=== PATIENT | male | born 1940 | race Caucasian/White ===

== ENCOUNTER 2020-08-25 17:35 | Observation (INO) | payer MEDICARE ==
[2020-08-25] MEDS ORDERED: Ibuprofen 400 MG Tab PO ONE (18:04)
--- NOTE | 2020-08-25 18:20 | EDM.PDOC ---
ED HPI GENERAL MEDICAL PROBLEM - General Chief Complaint: General Stated Complaint: WEAKNESS Time Seen by Provider: 08/25/20 18:05 Source of Information: Reports: Patient, Family, RN. Denies: Old Records History Limitations: Reports: Other (no old records) - History of Present Illness INITIAL COMMENTS - FREE TEXT/NARRATIVE: 80 yo male here via EMS accompanied by family members for weakness that began yesterday and has worsened today. He was unaware of fever. Denies any localizing sx's. Has neurogenic bladder and self-catheterizes. Denies any known exposures. Does not recall ever feeling like this before. Onset: Gradual Onset Date: 08/24/20 Duration: Day(s):, Getting Worse Location: Reports: Generalized Quality: Reports: Other (pain not reported) Severity: Severe Improves with: Reports: None Worsens with: Reports: Other (time) Context: Reports: Other (See HPI) Associated Symptoms: Reports: Fever/Chills (here, but was unaware of this at home. ), Weakness (generalized). 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) - Related Data Allergies Allergy/AdvReac Type Severity Reaction Status Date / Time acetaminophen [From Tylenol] Allergy Swelling Verified 08/25/20 17:46 Home Meds: Home Meds Cholecalciferol (Vitamin D3) [Vitamin D3] 1,000 unit PO DAILY 08/25/20 [History] Multivitamin [Multivitamins] 1 each PO DAILY 08/25/20 [History] Sulfamethoxazole/Trimethoprim [Bactrim 400-80 MG] 1 tab DAILY 08/25/20 [History] Past Medical History Genitourinary History: Reports: Neurogenic Bladder, Other (See Below) Other Genitourinary History: self cath's 3-4 times a day prn Musculoskeletal History: Reports: Arthritis Neurological History: Reports: None - Past Surgical History Head Surgeries/Procedures: Reports: None Neurological Surgical History: Reports: C-Spine Social & Family History - Family History Family Medical History: Noncontributory - Tobacco Use Tobacco Use Status *Q: Former Tobacco User Used Tobacco, but Quit: Yes Month/Year Tobacco Last Used: 1967 - Caffeine Use Caffeine Use: Reports: Coffee, Soda - Alcohol Use Days Per Week of Alcohol Use: 2 Number of Drinks Per Day: 4 Total Drinks Per Week: 8 - Recreational Drug Use Recreational Drug Use: No ED ROS GENERAL - Review of Systems Review Of Systems: See Below Constitutional: Reports: Malaise, Weakness, Fatigue. Denies: Fever (unaware), Chills (unaware) HEENT: Reports: No Symptoms Respiratory: Reports: No Symptoms Cardiovascular: Reports: No Symptoms Endocrine: Reports: No Symptoms GI/Abdominal: Reports: No Symptoms : Reports: No Symptoms Musculoskeletal: Reports: No Symptoms Skin: Reports: No Symptoms Neurological: Reports: No Symptoms Psychiatric: Reports: No Symptoms ED EXAM, GENERAL - Physical Exam Exam: See Below Exam Limited By: No Limitations General Appearance: Alert, WD/WN, No Apparent Distress Eye Exam: Bilateral Eye: Normal Inspection Ears: Normal External Exam, Normal Canal, Hearing Grossly Normal, Normal TMs Ear Exam: Bilateral Ear: Auricle Normal, Canal Normal Nose: Normal Inspection, No Blood Throat/Mouth: Normal Inspection, Normal Lips, Normal Oropharynx, Normal Voice, No Airway Compromise Head: Atraumatic, Normocephalic Neck: Normal Inspection, Non-Tender Respiratory/Chest: No Respiratory Distress, Lungs Clear, Normal Breath Sounds, No Accessory Muscle Use Cardiovascular: Regular Rate, Rhythm, No Edema GI/Abdominal: Normal Bowel Sounds, Soft, Non-Tender, No Distention Back Exam: Normal Inspection. No: CVA Tenderness (R), CVA Tenderness (L) Extremities: Normal Inspection, Normal Range of Motion, Non-Tender, No Pedal Edema Neurological: Alert, Oriented, CN II-XII Intact, Normal Cognition, No Motor/Sensory Deficits Psychiatric: Normal Affect, Normal Mood Skin Exam: Warm, Dry, Intact, Normal Color, No Rash Course - Vital Signs Last Recorded V/S: Last Vital Signs Temp 38.0 C 08/25/20 17:35 Pulse 74 08/25/20 17:35 Resp 28 H 08/25/20 17:35 BP 123/90 08/25/20 17:35 Pulse Ox 96 08/25/20 17:35 - Orders/Labs/Meds Orders: Active Orders 24 hr Category Date Time Status Chest 2V [CR] Stat Exams 08/25/20 20:20 Taken CULTURE URINE [RM] Stat Lab 08/25/20 18:35 Received Sodium Chloride 0.9% [Normal Saline] 1,000 ml Med 08/25/20 20:15 Active IV ASDIRECTED Medication Orders Sodium Chloride (Normal Saline) 1,000 mls @ 150 mls/hr IV ASDIRECTED [facility] Labs: Laboratory Tests 08/25/20 08/25/20 08/25/20 Range/Units 18:00 18:00 18:00 WBC 10.2 (4.5-12.0) X10-3/uL RBC 4.40 (4.30-5.75) x10(6)uL Hgb 13.9 (13.5-17.8) g/dL Hct 41.4 (30.0-51.3) % MCV 94.1 (80-96) fL MCH 31.5 (27.7-33.6) pg MCHC 33.5 (32.2-35.4) g/dL RDW 12.9 (11.5-15.5) % Plt Count 162 (125-369) X10(3)uL D-Dimer, Quantitative 0.67 H (0.0-0.59) mg/LFEU Sodium 130 L (135-145) mmol/L Potassium 4.3 (3.5-5.3) mmol/L Chloride 94 L (100-110) mmol/L Carbon Dioxide 25 (21-32) mmol/L BUN 27 H (7-18) mg/dL Creatinine 1.4 H (0.70-1.30) mg/dL Est Cr Clr Drug Dosing 43.33 mL/min Estimated GFR (MDRD) 49 L (>60) BUN/Creatinine Ratio 19.3 (9-20) Glucose 136 H (80-116) mg/dL Calcium 8.8 (8.6-10.2) mg/dL Lactate Dehydrogenase 135 (85-227) U/L C-Reactive Protein (0.5-0.9) mg/dL Urine Color (YELLOW) Urine Appearance (CLEAR) Urine pH (5.0-6.5) Ur Specific [place] (1.010-1.025) Urine Protein (NEGATIVE) mg/dL Urine Glucose (UA) (NORMAL) mg/dL Urine Ketones (NEGATIVE) mg/dL Urine Occult Blood (NEGATIVE) Urine Nitrite (NEGATIVE) Urine Bilirubin (NEGATIVE) Urine Urobilinogen (NEGATIVE) mg/dL Ur Leukocyte Esterase (NEGATIVE) Urine RBC (0-5) Urine WBC (0-5) Ur Squamous Epith Cells (NS,R,O) Amorphous Sediment Urine Bacteria (NS) SARS-CoV-2 RNA (JUAN) (NEGATIVE) 08/25/20 08/25/20 08/25/20 Range/Units 18:00 18:00 18:42 WBC (4.5-12.0) X10-3/uL RBC (4.30-5.75) x10(6)uL Hgb (13.5-17.8) g/dL Hct (30.0-51.3) % MCV (80-96) fL MCH (27.7-33.6) pg MCHC (32.2-35.4) g/dL RDW (11.5-15.5) % Plt Count (125-369) X10(3)uL D-Dimer, Quantitative (0.0-0.59) mg/LFEU Sodium (135-145) mmol/L Potassium (3.5-5.3) mmol/L Chloride (100-110) mmol/L Carbon Dioxide (21-32) mmol/L BUN (7-18) mg/dL Creatinine (0.70-1.30) mg/dL Est Cr Clr Drug Dosing mL/min Estimated GFR (MDRD) (>60) BUN/Creatinine Ratio (9-20) Glucose (80-116) mg/dL Calcium (8.6-10.2) mg/dL Lactate Dehydrogenase (85-227) U/L C-Reactive Protein 24.6 H* (0.5-0.9) mg/dL Urine Color Yellow (YELLOW) Urine Appearance Slightly cloudy (CLEAR) Urine pH 5.0 (5.0-6.5) Ur Specific [place] 1.025 (1.010-1.025) Urine Protein 100 H (NEGATIVE) mg/dL Urine Glucose (UA) Normal (NORMAL) mg/dL Urine Ketones Negative (NEGATIVE) mg/dL Urine Occult Blood Large H (NEGATIVE) Urine Nitrite Positive H (NEGATIVE) Urine Bilirubin Negative (NEGATIVE) Urine Urobilinogen Normal (NEGATIVE) mg/dL Ur Leukocyte Esterase Negative (NEGATIVE) Urine RBC 5-10 H (0-5) Urine WBC 0-5 (0-5) Ur Squamous Epith Cells Occasional (NS,R,O) Amorphous Sediment Few Urine Bacteria Moderate H (NS) SARS-CoV-2 RNA (JUAN) Negative (NEGATIVE) Meds: Medications Generic Name Dose Route Start Last Admin Trade Name El PRN Reason Stop Dose Admin Sodium Chloride 1,000 mls @ 150 mls/hr 08/25/20 20:15 Normal Saline IV ASDIRECTED LUCA Discontinued Medications Generic Name Dose Route Start Last Admin Trade Name El PRN Reason Stop Dose Admin Ceftriaxone Sodium 2 gm 08/25/20 20:45 Rocephin IVPUSH 08/25/20 20:46 ONETIME ONE Sodium Chloride 1,000 mls @ 1,000 mls/hr 08/25/20 18:52 08/25/20 19:13 Normal Saline IV 08/25/20 19:51 1,000 mls/hr .BOLUS ONE Administration Ceftriaxone Sodium 2 gm/ 50 mls @ 200 mls/hr 08/25/20 20:34 Sodium Chloride IV 08/25/20 20:48 ONETIME ONE Ibuprofen 400 mg 08/25/20 18:04 08/25/20 18:21 Motrin PO 08/25/20 18:05 400 mg ONETIME ONE Administration - Radiology Interpretation Free Text/Narrative:: CXR-neg Departure - Departure Time of Disposition: 21:00 Disposition: Refer to Observation Condition: Fair Clinical Impression: Weakness, Mild dehydration, Hyponatremia UTI (urinary tract infection) Qualifiers: Urinary tract infection type: site unspecified Hematuria presence: without hematuria Qualified Code(s): N39.0 - Urinary tract infection, site not specified - Discharge Information *PRESCRIPTION DRUG MONITORING PROGRAM REVIEWED*: Not Applicable *COPY OF PRESCRIPTION DRUG MONITORING REPORT IN PATIENT [place]ETTE: Not Applicable Referrals: PCP,None [Ordering Only Provider] - Forms: ED Department Discharge Sepsis Event Note (ED) - Evaluation Sepsis Screening Result: Possible Sepsis Risk - Focused Exam Vital Signs: Vital Signs Temp Pulse Resp BP Pulse Ox 08/25/20 17:35 38.0 C 74 28 H 123/90 96 - My Orders Last 24 Hours: My Active Orders 08/25/20 18:35 CULTURE URINE [RM] Stat 08/25/20 20:15 Sodium Chloride 0.9% [Normal Saline] 1,000 ml IV ASDIRECTED 08/25/20 20:20 Chest 2V [CR] Stat - Assessment/Plan Last 24 Hours: My Active Orders 08/25/20 18:35 CULTURE URINE [RM] Stat 11/01/20 20:15 Sodium Chloride 0.9% [Normal Saline] 1,000 ml IV ASDIRECTED 08/25/20 20:20 Chest 2V [CR] Stat
[2020-08-25] MEDS ORDERED: Sodium Chloride 0.9% 1,000 ML IV ONE (18:52)
[2020-08-25] MEDS ORDERED: cefTRIAXone 2 GM in Sodium Chloride 0.9% 50 ML IV ONE (20:34)
[2020-08-25] MEDS ORDERED: cefTRIAXone 2 GM Vial IVPUSH ONE (20:45)
[2020-08-25] MEDS: Sodium Chloride 0.9% 1,000 ML IV SCH (20:54)
[2020-08-25] MEDS ORDERED: Polyethylene Glycol 3350 Powder 17 GM Packet PO PRN (21:06)
[2020-08-25] MEDS ORDERED: Ibuprofen 400 MG Tab PO PRN (21:06)
[2020-08-26] MEDS: Sodium Chloride 0.9% 1,000 ML IV SCH ×2 (03:49→16:30)
[2020-08-26] MEDS ORDERED: cefTRIAXone 1 GM in Sodium Chloride 0.9% 50 ML IV SCH (09:00)
--- NOTE | 2020-08-26 09:00 | PCM.HP.2 ---
H&P History of Present Illness - General Date of Service: 08/26/20 Admit Problem/Dx: Admission Diagnosis/Problem Admission Diagnosis/Problem UTI, Urinary tract infectious disease Source of Information: Patient History Limitations: Reports: No Limitations - History of Present Illness Initial Comments - Free Text/Narative: This is an 80-year-old male patient that weakness started 2 days ago and then the day of admission yesterday stated he is watching the games and he was so weak he couldn't get out of his chair. He called the ambulance and was brought in. He has a history of neurogenic bladder and self cath. He denies any burning with urination or discolored urine which is usually signs his UTIs coming on. He does take Bactrim prophylaxis once a day. He says the weakness was generalized and not lateralized. He denies dysphagia, aphasia, lateralizing weakness. Patien t denies any chest pain. He has a little cough that he always has time a year but that hasn't changed. He had no fevers or chills at home. He says last night in the hospital they told me a little fever. - Related Data Allergies/Adverse Reactions: Allergies Allergy/AdvReac Type Severity Reaction Status Date / Time acetaminophen [From Tylenol] Allergy Swelling Verified 08/25/20 17:46 Home Medications: Home Meds Cholecalciferol (Vitamin D3) [Vitamin D3] 1,000 unit PO DAILY 08/25/20 [History] Multivitamin [Multivitamins] 1 each PO DAILY 08/25/20 [History] Sulfamethoxazole/Trimethoprim [Bactrim 400-80 MG] 1 tab DAILY 08/25/20 [History] Past Medical History Genitourinary History: Reports: Neurogenic Bladder, Other (See Below) Other Genitourinary History: self cath's 3-4 times a day prn Musculoskeletal History: Reports: Arthritis Neurological History: Reports: None - Past Surgical History Head Surgeries/Procedures: Reports: None GI Surgical History: Reports: Other (See Below) Other GI Surgeries/Procedures: Ulcer repair 2007 Neurological Surgical History: Reports: C-Spine Social & Family History - Family History Family Medical History: Noncontributory - Tobacco Use Tobacco Use Status *Q: Former Tobacco User Years of Tobacco use: 35 Used Tobacco, but Quit: Yes Month/Year Tobacco Last Used: 1969 Second Hand Smoke Exposure: No - Caffeine Use Caffeine Use: Reports: Coffee Other Caffeine Use: 2 coffee - Alcohol Use Days Per Week of Alcohol Use: 5 Number of Drinks Per Day: 1 Total Drinks Per Week: 5 - Recreational Drug Use Recreational Drug Use: No H&P Review of Systems - Review of Systems: Review Of Systems: See Below General: Reports: Weakness HEENT: Reports: No Symptoms Pulmonary: Reports: Cough, Sputum. Denies: Shortness of Breath, Wheezing Cardiovascular: Reports: No Symptoms Gastrointestinal: Reports: No Symptoms Genitourinary: Reports: No Symptoms Musculoskeletal: Reports: No Symptoms Skin: Reports: No Symptoms Psychiatric: Reports: No Symptoms Neurological: Reports: Difficulty Walking, Weakness, Gait Disturbance. Denies: Headache, Numbness, Seizure, Syncope, Tingling, Trouble Speaking Hematologic/Lymphatic: Reports: No Symptoms Immunologic: Reports: No Symptoms Exam - Exam Exam: See Below - Vital Signs Vital Signs: Last Vital Signs Temp 99.1 F 08/26/20 06:40 Pulse 75 08/26/20 04:00 Resp 16 08/26/20 04:00 BP 151/66 H 08/26/20 04:00 Pulse Ox 95 08/26/20 04:00 Weight: 194 lb - Exam General: Alert, Oriented, Cooperative HEENT: Hearing Intact, Mucosa Moist & [place], Posterior Pharynx Clear, TMs Clear Neck: Supple, Trachea Midline Lungs: Clear to Auscultation, Normal Respiratory Effort. No: Crackles, Rales, Rhonchi Cardiovascular: Regular Rate, Regular Rhythm GI/Abdominal Exam: Normal Bowel Sounds, Soft, Non-Tender, No Organomegaly, No Distention, No Mass Back Exam: Normal Inspection, Full Range of Motion Extremities: Normal Inspection, Normal Range of Motion, Non-Tender, No Pedal Edema Skin: Warm, Intact Neurological: Normal Speech, Normal Tone Neuro Extensive - Mental Status: Alert, Oriented x3, Normal Mood/Affect, Normal Cognition, Memory Intact Neuro Extensive - Motor, Sensory, Reflexes: No: Normal Gait (Not tested had good lateralizing strength upper and lower extremities.) Psychiatric: Alert, Normal Affect, Normal Mood - Patient Data Lab Results Last 24 hrs: Laboratory Results - last 24 hr 08/25/20 08/25/20 08/25/20 Range/Units 18:00 18:00 18:00 WBC 10.2 (4.5-12.0) X10-3/uL RBC 4.40 (4.30-5.75) x10(6)uL Hgb 13.9 (13.5-17.8) g/dL Hct 41.4 (30.0-51.3) % MCV 94.1 (80-96) fL MCH 31.5 (27.7-33.6) pg MCHC 33.5 (32.2-35.4) g/dL RDW 12.9 (11.5-15.5) % Plt Count 162 (125-369) X10(3)uL MPV (7.4-10.4) fL Neut % (Auto) (46-82) % Lymph % (Auto) (13-37) % [place] % (Auto) (4-12) % Eos % (Auto) (1.0-5.0) % Baso % (Auto) (0-2) % Neut # (Auto) (1.6-8.3) # Lymph # (Auto) (0.6-5.0) # Clare # (Auto) (0.0-1.3) # Eos # (Auto) (0.0-0.8) # Baso # (Auto) (0.0-0.2) # D-Dimer, Quantitative 0.67 H (0.0-0.59) mg/LFEU Sodium 130 L (135-145) mmol/L Potassium 4.3 (3.5-5.3) mmol/L Chloride 94 L (100-110) mmol/L Carbon Dioxide 25 (21-32) mmol/L BUN 27 H (7-18) mg/dL Creatinine 1.4 H (0.70-1.30) mg/dL Est Cr Clr Drug Dosing 43.33 mL/min Estimated GFR (MDRD) 49 L (>60) BUN/Creatinine Ratio 19.3 (9-20) Glucose 136 H (80-116) mg/dL Calcium 8.8 (8.6-10.2) mg/dL Lactate Dehydrogenase 135 (85-227) U/L Troponin I (4.0-60.3) pg/mL C-Reactive Protein (0.5-0.9) mg/dL Urine Color (YELLOW) Urine Appearance (CLEAR) Urine pH (5.0-6.5) Ur Specific [place] (1.010-1.025) Urine Protein (NEGATIVE) mg/dL Urine Glucose (UA) (NORMAL) mg/dL Urine Ketones (NEGATIVE) mg/dL Urine Occult Blood (NEGATIVE) Urine Nitrite (NEGATIVE) Urine Bilirubin (NEGATIVE) Urine Urobilinogen (NEGATIVE) mg/dL Ur Leukocyte Esterase (NEGATIVE) Urine RBC (0-5) Urine WBC (0-5) Ur Squamous Epith Cells (NS,R,O) Amorphous Sediment Urine Bacteria (NS) SARS-CoV-2 RNA (JUAN) (NEGATIVE) 08/25/20 08/25/20 08/25/20 Range/Units 18:00 18:00 18:00 WBC (4.5-12.0) X10-3/uL RBC (4.30-5.75) x10(6)uL Hgb (13.5-17.8) g/dL Hct (30.0-51.3) % MCV (80-96) fL MCH (27.7-33.6) pg MCHC (32.2-35.4) g/dL RDW (11.5-15.5) % Plt Count (125-369) X10(3)uL MPV (7.4-10.4) fL Neut % (Auto) (46-82) % Lymph % (Auto) (13-37) % [place] % (Auto) (4-12) % Eos % (Auto) (1.0-5.0) % Baso % (Auto) (0-2) % Neut # (Auto) (1.6-8.3) # Lymph # (Auto) (0.6-5.0) # Clare # (Auto) (0.0-1.3) # Eos # (Auto) (0.0-0.8) # Baso # (Auto) (0.0-0.2) # D-Dimer, Quantitative (0.0-0.59) mg/LFEU Sodium (135-145) mmol/L Potassium (3.5-5.3) mmol/L Chloride (100-110) mmol/L Carbon Dioxide (21-32) mmol/L BUN (7-18) mg/dL Creatinine (0.70-1.30) mg/dL Est Cr Clr Drug Dosing mL/min Estimated GFR (MDRD) (>60) BUN/Creatinine Ratio (9-20) Glucose (80-116) mg/dL Calcium (8.6-10.2) mg/dL Lactate Dehydrogenase (85-227) U/L Troponin I 14.4 (4.0-60.3) pg/mL C-Reactive Protein 24.6 H* (0.5-0.9) mg/dL Urine Color Yellow (YELLOW) Urine Appearance Slightly cloudy (CLEAR) Urine pH 5.0 (5.0-6.5) Ur Specific [place] 1.025 (1.010-1.025) Urine Protein 100 H (NEGATIVE) mg/dL Urine Glucose (UA) Normal (NORMAL) mg/dL Urine Ketones Negative (NEGATIVE) mg/dL Urine Occult Blood Large H (NEGATIVE) Urine Nitrite Positive H (NEGATIVE) Urine Bilirubin Negative (NEGATIVE) Urine Urobilinogen Normal (NEGATIVE) mg/dL Ur Leukocyte Esterase Negative (NEGATIVE) Urine RBC 5-10 H (0-5) Urine WBC 0-5 (0-5) Ur Squamous Epith Cells Occasional (NS,R,O) Amorphous Sediment Few Urine Bacteria Moderate H (NS) SARS-CoV-2 RNA (JUAN) (NEGATIVE) 08/25/20 08/26/20 08/26/20 Range/Units 18:42 06:25 06:25 WBC 10.0 (4.5-12.0) X10-3/uL RBC 3.74 L (4.30-5.75) x10(6)uL Hgb 12.1 L (13.5-17.8) g/dL Hct 35.0 (30.0-51.3) % MCV 93.7 (80-96) fL MCH 32.5 (27.7-33.6) pg MCHC 34.7 (32.2-35.4) g/dL RDW 12.8 (11.5-15.5) % Plt Count 133 (125-369) X10(3)uL MPV 7.1 L (7.4-10.4) fL Neut % (Auto) 84.1 H (46-82) % Lymph % (Auto) 7.8 L (13-37) % [place] % (Auto) 7.1 (4-12) % Eos % (Auto) 0 L (1.0-5.0) % Baso % (Auto) 1 (0-2) % Neut # (Auto) 8.4 H (1.6-8.3) # Lymph # (Auto) 0.8 (0.6-5.0) # [place] # (Auto) 0.7 (0.0-1.3) # Eos # (Auto) 0.0 (0.0-0.8) # Baso # (Auto) 0.1 (0.0-0.2) # D-Dimer, Quantitative (0.0-0.59) mg/LFEU Sodium 134 L (135-145) mmol/L Potassium 3.9 (3.5-5.3) mmol/L Chloride 100 D (100-110) mmol/L Carbon Dioxide 25 (21-32) mmol/L BUN 20 H (7-18) mg/dL Creatinine 1.2 (0.70-1.30) mg/dL Est Cr Clr Drug Dosing 50.55 mL/min Estimated GFR (MDRD) 58 L (>60) BUN/Creatinine Ratio 16.7 (9-20) Glucose 117 H (80-116) mg/dL Calcium 8.3 L (8.6-10.2) mg/dL Lactate Dehydrogenase (85-227) U/L Troponin I (4.0-60.3) pg/mL C-Reactive Protein (0.5-0.9) mg/dL Urine Color (YELLOW) Urine Appearance (CLEAR) Urine pH (5.0-6.5) Ur Specific [place] (1.010-1.025) Urine Protein (NEGATIVE) mg/dL Urine Glucose (UA) (NORMAL) mg/dL Urine Ketones (NEGATIVE) mg/dL Urine Occult Blood (NEGATIVE) Urine Nitrite (NEGATIVE) Urine Bilirubin (NEGATIVE) Urine Urobilinogen (NEGATIVE) mg/dL Ur Leukocyte Esterase (NEGATIVE) Urine RBC (0-5) Urine WBC (0-5) Ur Squamous Epith Cells (NS,R,O) Amorphous Sediment Urine Bacteria (NS) SARS-CoV-2 RNA (JUAN) Negative (NEGATIVE) Result Diagrams: 08/26/20 06:25 08/26/20 06:25 Sepsis Event Note - Evaluation Sepsis Screening Result: No Definite Risk - Focused Exam Vital Signs: Vital Signs Temp Temp Pulse Resp BP Pulse Ox 08/26/20 06:40 99.1 F 08/26/20 05:30 101.4 F H 08/26/20 05:06 101.4 F H 08/26/20 04:06 99.4 F 08/26/20 04:00 99.4 F 75 16 151/66 H 95 08/26/20 00:27 98.7 F 08/25/20 21:40 98.6 F 69 16 131/59 L 96 08/25/20 21:07 98.2 F 68 20 118/49 L 96 - Problem List (1) Palliative care status SNOMED Code(s): 512802494 ICD Code: Z51.5 - ENCOUNTER FOR PALLIATIVE CARE Status: Acute Current Visit: Yes (2) Hyponatremia SNOMED Code(s): 07374307 ICD Code: E87.1 - HYPO-OSMOLALITY AND HYPONATREMIA Status: Acute Current Visit: Yes (3) Mild dehydration SNOMED Code(s): 0960885768753 ICD Code: E86.0 - DEHYDRATION Status: Acute Current Visit: Yes (4) UTI (urinary tract infection) SNOMED Code(s): 49594738 ICD Code: N39.0 - URINARY TRACT INFECTION, SITE NOT SPECIFIED Status: Acute Current Visit: Yes Qualifiers: Urinary tract infection type: site unspecified Hematuria presence: without hematuria Qualified Code(s): N39.0 - Urinary tract infection, site not specified (5) Weakness SNOMED Code(s): 82649787 ICD Code: R53.1 - WEAKNESS Status: Acute Current Visit: Yes (6) Neurogenic bladder SNOMED Code(s): 307462230 ICD Code: N31.9 - NEUROMUSCULAR DYSFUNCTION OF BLADDER, UNSPECIFIED Status: Acute Current Visit: Yes Problem List Initiated/Reviewed/Updated: Yes Orders Last 24hrs: Active Orders 24 hr Category Date Time Status Patient Status [ADT] Routine ADT 08/25/20 21:01 Active Oxygen Therapy [RC] PRN Care 08/25/20 21:01 Active Oxygen Therapy [RC] PRN Care 08/25/20 21:07 Active VTE/DVT Education [RC] Per Unit Routine Care 08/25/20 21:01 Active VTE/DVT Education [RC] Per Unit Routine Care 08/25/20 21:07 Active Vital Signs [RC] 08,12,16,20,00,04 Care 08/25/20 21:07 Active Regular Diet [DIET] Diet 08/26/20 Breakfast Active Chest 2V [CR] Stat Exams 08/25/20 20:20 Taken CULTURE URINE [RM] Stat Lab 08/25/20 18:35 Received Ibuprofen [Motrin] Med 08/25/20 21:06 Active 400 mg PO Q6H PRN Sodium Chloride 0.9% [Normal Saline] 1,000 ml Med 08/25/20 20:15 Active IV ASDIRECTED polyethylene glycoL 3350 [MiraLAX] Med 08/25/20 21:06 Active 17 gm PO DAILY PRN Antiembolic Hose [OM.PC] Per Unit Routine Oth 08/25/20 21:08 Ordered Resuscitation Status Routine Resus Stat 08/26/20 08:53 Ordered Medication Orders Sodium Chloride (Normal Saline) 1,000 mls @ 75 mls/hr IV ASDIRECTED LUCA Last Admin: 08/26/20 03:49 Dose: 150 mls/hr Documented by: Infusion: 08/26/20 03:35 Dose: 150 mls/hr Documented by: Admin: 08/25/20 20:54 Dose: 150 mls/hr Documented by: LEA Ibuprofen (Motrin) 400 mg PO Q6H PRN PRN Reason: Pain (mild 1-3) Last Admin: 08/26/20 04:06 Dose: 400 mg Documented by: VON Polyethylene Glycol (Miralax) 17 gm PO DAILY PRN PRN Reason: Constipation Assessment/Plan Comment:: 1. Admit for observation. 2. Patient wants to be DO NOT RESUSCITATE or intubate. 3. Lovenox for clot prophylaxis 4. Regular diet 5. Culture urine. 6. Up with assist 7. IV fluids to correct sodium - Mortality Measure Prognosis:: Good
[2020-08-26] MEDS: Enoxaparin 40 MG/0.4 ML Syringe SUBCUT SCH (10:32)
[2020-08-26] MEDS ORDERED: Sodium Chloride 0.9% 10 ML Syringe FLUSH PRN (20:19)
[2020-08-26] MEDS ORDERED: cefTRIAXone 1 GM Vial IVPUSH SCH (21:00)
[2020-08-27] MEDS: Enoxaparin 40 MG/0.4 ML Syringe SUBCUT SCH (08:31)
--- NOTE | 2020-08-27 08:49 | PCM.PN ---
- General Info Date of Service: 08/27/20 Admission Dx/Problem (Free Text): Patient without complaints. He says his strength is almost normal. He has no dysuria, pyuria, hematuria, fevers, chills. He states he would like to go home. - Patient Data Vitals - Most Recent: Last Vital Signs Temp 98.9 F 08/26/20 20:00 Pulse 63 08/26/20 20:00 Resp 16 08/26/20 20:00 BP 137/62 08/26/20 20:00 Pulse Ox 96 08/26/20 20:00 Weight - Most Recent: 194 lb Lab Results Last 24 Hours: Laboratory Results - last 24 hr 08/27/20 Range/Units 06:25 Sodium 134 L (135-145) mmol/L Potassium 3.7 (3.5-5.3) mmol/L Chloride 100 (100-110) mmol/L Carbon Dioxide 26 (21-32) mmol/L BUN 19 H (7-18) mg/dL Creatinine 1.1 (0.70-1.30) mg/dL Est Cr Clr Drug Dosing 55.14 mL/min Estimated GFR (MDRD) > 60 (>60) BUN/Creatinine Ratio 17.3 (9-20) Glucose 101 (80-116) mg/dL Calcium 8.7 (8.6-10.2) mg/dL [place] Results Last 24 Hours: Microbiology 08/25/20 18:35 Urine Culture - Preliminary Urine, Quick Cath (In-Out) Gram Negative Rods Med Orders - Current: Current Medications Ceftriaxone Sodium (Rocephin) 1 gm IVPUSH Q24H [facility] Last Admin: 08/26/20 20:16 Dose: 1 gm Documented by: Enoxaparin Sodium (Lovenox) 40 mg SUBCUT Q24H [facility] Last Admin: 08/27/20 08:31 Dose: 40 mg Documented by: Ibuprofen (Motrin) 400 mg PO Q6H PRN PRN Reason: Pain (mild 1-3) Last Admin: 08/26/20 04:06 Dose: 400 mg Documented by: Polyethylene Glycol (Miralax) 17 gm PO DAILY PRN PRN Reason: Constipation Sodium Chloride (Saline Flush) 10 ml FLUSH ASDIRECTED PRN PRN Reason: flush Last Admin: 08/26/20 20:20 Dose: 10 ml Documented by: Discontinued Medications Ceftriaxone Sodium (Rocephin) 2 gm IVPUSH ONETIME ONE Stop: 08/25/20 20:46 Last Admin: 08/25/20 20:54 Dose: 2 gm Documented by: Sodium Chloride (Normal Saline) 1,000 mls @ 1,000 mls/hr IV .BOLUS ONE Stop: 08/25/20 19:51 Last Admin: 08/25/20 19:13 Dose: 1,000 mls/hr Documented by: Sodium Chloride (Normal Saline) 1,000 mls @ 75 mls/hr IV ASDIRECTED [facility] Last Admin: 08/26/20 16:30 Dose: 150 mls/hr Documented by: Ceftriaxone Sodium 2 gm/ (Sodium Chloride) 50 mls @ 200 mls/hr IV ONETIME ONE Stop: 08/25/20 20:48 Last Admin: 08/25/20 21:00 Dose: Not Given Documented by: Ibuprofen (Motrin) 400 mg PO ONETIME ONE Stop: 08/25/20 18:05 Last Admin: 08/25/20 18:21 Dose: 400 mg Documented by: - Exam General: Alert, Oriented Lungs: Clear to Auscultation, Normal Respiratory Effort Cardiovascular: Regular Rate, Regular Rhythm, No Murmurs GI/Abdominal Exam: Other (No suprapubic tenderness) Back Exam: No: CVA Tenderness (R), CVA Tenderness (L) Extremities: No Pedal Edema Sepsis Event Note - Evaluation Sepsis Screening Result: No Definite Risk - Problem List & Annotations (1) Palliative care status SNOMED Code(s): 397982518 Code(s): Z51.5 - ENCOUNTER FOR PALLIATIVE CARE Status: Acute Current Visit: Yes (2) Hyponatremia SNOMED Code(s): 03292143 Code(s): E87.1 - HYPO-OSMOLALITY AND HYPONATREMIA Status: Acute Current Visit: Yes (3) Mild dehydration SNOMED Code(s): 5274793857780 Code(s): E86.0 - DEHYDRATION Status: Acute Current Visit: Yes (4) UTI (urinary tract infection) SNOMED Code(s): 50090788 Code(s): N39.0 - URINARY TRACT INFECTION, SITE NOT SPECIFIED Status: Acute Current Visit: Yes Qualifiers: Urinary tract infection type: site unspecified Hematuria presence: without hematuria Qualified Code(s): N39.0 - Urinary tract infection, site not specified (5) Weakness SNOMED Code(s): 63867501 Code(s): R53.1 - WEAKNESS Status: Acute Current Visit: Yes (6) Neurogenic bladder SNOMED Code(s): 810996301 Code(s): N31.9 - NEUROMUSCULAR DYSFUNCTION OF BLADDER, UNSPECIFIED Status: Acute Current Visit: Yes - Problem List Review Problem List Initiated/Reviewed/Updated: Yes - My Orders Last 24 Hours: My Active Orders 08/26/20 08:53 Resuscitation Status Routine 08/26/20 09:00 Up With Assistance [RC] ASDIRECTED 08/26/20 09:15 Enoxaparin [Lovenox] 40 mg SUBCUT Q24H 08/26/20 18:20 Convert IV to Saline Lock [OM.PC] Routine 08/26/20 20:19 Sodium Chloride 0.9% [Saline Flush] 10 ml FLUSH ASDIRECTED PRN 08/26/20 21:00 cefTRIAXone [Rocephin] 1 gm IVPUSH Q24H - Plan Plan:: I told him is okay to go home as long as he comes back at the end of the week to get the culture of his urine and the sensitivity. He agrees. We'll send him on Cipro 500 mg twice a day. Patient does not want home health all it was offered.
--- NOTE | 2020-08-27 08:53 | PCM.DCSUM1 ---
Discharge Summary - Hospital Course Free Text/Narrative:: Patient was admitted for observation. He is given IV fluids which brought his sodium up nicely. Rocephin IV once a day was given and by the next morning his strength is back. He never had any dysuria, pyuria, hematuria, back pain, nausea or vomiting just weakness. His strength was back. No other cause for his weakness was found. On day 2 the admission the patient wanted to go home. His cultures growing out Escherichia coli. I told him I would send him home as long as he comes back in a couple days the clinic to get the culture results. He agreed to it. I did offer home health and he deferred. Brief History: This is an 80-year-old male patient that weakness started 2 days ago and then the day of admission yesterday stated he is watching the games and he was so weak he couldn't get out of his chair. He called the ambulance and was brought in. He has a history of neurogenic bladder and self cath. He denies any burning with urination or discolored urine which is usually signs his UTIs coming on. He does take Bactrim prophylaxis once a day. He says the weakness was generalized and not lateralized. He denies dysphagia, aphasia, lateralizing weakness. Patient denies any chest pain. He has a little cough that he always has time a year but that hasn't changed. He had no fevers or chills at home. He says last night in the hospital they told me a little fever. Diagnosis: Stroke: No - Discharge Data Discharge Date: 08/27/20 Discharge Disposition: Home, Self-Care 01 Condition: Good - Referral to Home Health Primary Care Physician: JIMENEZ Centeno - Discharge Diagnosis/Problem(s) (1) Palliative care status SNOMED Code(s): 486297033 ICD Code: Z51.5 - ENCOUNTER FOR PALLIATIVE CARE Status: Acute Current Visit: Yes (2) Hyponatremia SNOMED Code(s): 05225426 ICD Code: E87.1 - HYPO-OSMOLALITY AND HYPONATREMIA Status: Acute Current Visit: Yes (3) Mild dehydration SNOMED Code(s): 5207149119900 ICD Code: E86.0 - DEHYDRATION Status: Acute Current Visit: Yes (4) UTI (urinary tract infection) SNOMED Code(s): 80068197 ICD Code: N39.0 - URINARY TRACT INFECTION, SITE NOT SPECIFIED Status: Acute Current Visit: Yes Qualifiers: Urinary tract infection type: site unspecified Hematuria presence: without hematuria Qualified Code(s): N39.0 - Urinary tract infection, site not specifi ed (5) Weakness SNOMED Code(s): 53089849 ICD Code: R53.1 - WEAKNESS Status: Acute Current Visit: Yes (6) Neurogenic bladder SNOMED Code(s): 765794043 ICD Code: N31.9 - NEUROMUSCULAR DYSFUNCTION OF BLADDER, UNSPECIFIED Status: Acute Current Visit: Yes - Patient Instructions Diet: Regular Diet as Tolerated Activity: As Tolerated Driving: May Drive Today Showering/Bathing: May Shower Notify Provider of: Fever, Increased Pain, Nausea and/or Vomiting Other/Special Instructions: 1. Hold Bactrim prophylaxis until he is done with the Cipro. 2. Reche[address] Dr. Lopez 08/30/20 in the clinic for results of his urine culture. - Discharge Plan *PRESCRIPTION DRUG MONITORING PROGRAM REVIEWED*: Not Applicable *COPY OF PRESCRIPTION DRUG MONITORING REPORT IN PATIENT [place]ETTE: Not Applicable Prescriptions/Med Rec: Ciprofloxacin HCl [Cipro] 500 mg PO BID #20 tablet Home Medications: Home Meds Cholecalciferol (Vitamin D3) [Vitamin D3] 1,000 unit PO DAILY 08/25/20 [History] Multivitamin [Multivitamins] 1 each PO DAILY 08/25/20 [History] Sulfamethoxazole/Trimethoprim [Bactrim 400-80 MG] 1 tab DAILY 08/25/20 [History] Ciprofloxacin HCl [Cipro] 500 mg PO BID #20 tablet 08/27/20 [Rx] Forms: ED Department Discharge Referrals: PCP,None [Ordering Only Provider] - - Discharge Summary/Plan Comment DC Time >30 min.: No - Patient Data Vitals - Most Recent: Last Vital Signs Temp 98.9 F 08/26/20 20:00 Pulse 63 08/26/20 20:00 Resp 16 08/26/20 20:00 BP 137/62 08/26/20 20:00 Pulse Ox 96 08/26/20 20:00 Weight - Most Recent: 194 lb Lab Results - Last 24 hrs: Laboratory Results - last 24 hr 08/27/20 Range/Units 06:25 Sodium 134 L (135-145) mmol/L Potassium 3.7 (3.5-5.3) mmol/L Chloride 100 (100-110) mmol/L Carbon Dioxide 26 (21-32) mmol/L BUN 19 H (7-18) mg/dL Creatinine 1.1 (0.70-1.30) mg/dL Est Cr Clr Drug Dosing 55.14 mL/min Estimated GFR (MDRD) > 60 (>60) BUN/Creatinine Ratio 17.3 (9-20) Glucose 101 (80-116) mg/dL Calcium 8.7 (8.6-10.2) mg/dL [place] Results - Last 24 hrs: Microbiology 08/25/20 18:35 Urine Culture - Preliminary Urine, Quick Cath (In-Out) Gram Negative Rods Med Orders - Current: Current Medications Ceftriaxone Sodium (Rocephin) 1 gm IVPUSH Q24H [facility] Last Admin: 08/26/20 20:16 Dose: 1 gm Documented by: Enoxaparin Sodium (Lovenox) 40 mg SUBCUT Q24H [facility] Last Admin: 08/27/20 08:31 Dose: 40 mg Documented by: Ibuprofen (Motrin) 400 mg PO Q6H PRN PRN Reason: Pain (mild 1-3) Last Admin: 08/26/20 04:06 Dose: 400 mg Documented by: Polyethylene Glycol (Miralax) 17 gm PO DAILY PRN PRN Reason: Constipation Sodium Chloride (Saline Flush) 10 ml FLUSH ASDIRECTED PRN PRN Reason: flush Last Admin: 08/26/20 20:20 Dose: 10 ml Documented by: Discontinued Medications Ceftriaxone Sodium (Rocephin) 2 gm IVPUSH ONETIME ONE Stop: 08/25/20 20:46 Last Admin: 08/25/20 20:54 Dose: 2 gm Documented by: Sodium Chloride (Normal Saline) 1,000 mls @ 1,000 mls/hr IV .BOLUS ONE Stop: 08/25/20 19:51 Last Admin: 08/25/20 19:13 Dose: 1,000 mls/hr Documented by: Sodium Chloride (Normal Saline) 1,000 mls @ 75 mls/hr IV ASDIRECTED [facility] Last Admin: 08/26/20 16:30 Dose: 150 mls/hr Documented by: Ceftriaxone Sodium 2 gm/ (Sodium Chloride) 50 mls @ 200 mls/hr IV ONETIME ONE Stop: 08/25/20 20:48 Last Admin: 08/25/20 21:00 Dose: Not Given Documented by: Ibuprofen (Motrin) 400 mg PO ONETIME ONE Stop: 08/25/20 18:05 Last Admin: 08/25/20 18:21 Dose: 400 mg Documented by:
== END 2020-08-27 09:55 | disposition home or self-care (01) ==
LOC: FB.ED 17:35 → FB.MS 21:01
PROVIDERS: ADMIT Emergency Medicine; ATTEND Family Medicine
DX: E87.1 Hypo-osmolality and hyponatremia (principal); E86.0 Dehydration; N39.0 Urinary tract infection, site not specified; N31.9 Neuromuscular dysfunction of bladder, unspecified; Z51.5 Encounter for palliative care; Z20.828 Contact with and (suspected) exposure to other viral communicable diseases; Z79.899 Other long term (current) drug therapy; Z88.8 Allergy status to other drugs, medicaments and biological substances; Z87.891 Personal history of nicotine dependence
CPT/HCPCS: 36415; 51701; 71046; 80048; 81001; 83615; 84484; 85025; 85027; 85379; 86140; 87086; 87088; 87186; 96374; 99285-25; A9270-GY; J0696; J1650; J7030; U0002

== ENCOUNTER 2021-07-01 09:19 | Emergency (ER) | payer MEDICARE ==
[2021-07-01] MEDS ORDERED: Lidocaine 1% 20 ML MDV INFILT ONE (09:20)
[2021-07-01] MEDS ORDERED: Sodium Chloride 0.9% 10 ML Syringe FLUSH PRN (10:15)
[2021-07-01] MEDS ORDERED: Sodium Chloride 0.9% 1,000 ML IV SCH (10:15)
--- NOTE | 2021-07-01 10:32 | EDM.PDOC ---
ED HPI GENERAL MEDICAL PROBLEM - General Chief Complaint: Head Injury Stated Complaint: head injury Time Seen by Provider: 07/01/21 09:25 Source of Information: Reports: Patient History Limitations: Reports: No Limitations - History of Present Illness INITIAL COMMENTS - FREE TEXT/NARRATIVE: Patient presented to the ED because of a head injury. He triped and fell at the parkinglot and hit his left forehead on the ground. there was no LOC after the fall. He sustained a 3 cm laceration over the left eyebrow. Eye Pain Score (Numeric/FACES): 6 - Related Data Home Meds: Home Meds Sulfamethoxazole/Trimethoprim [Bactrim 400-80 MG] 0.5 tab PO DAILY 08/25/20 [History] Past Medical History Genitourinary History: Reports: Neurogenic Bladder, Other (See Below) Other Genitourinary History: self cath's 3-4 times a day prn Musculoskeletal History: Reports: Arthritis Neurological History: Reports: None - Past Surgical History Head Surgeries/Procedures: Reports: None GI Surgical History: Reports: Other (See Below) Other GI Surgeries/Procedures: Ulcer repair 2007 Neurological Surgical History: Reports: C-Spine Social & Family History - Family History Family Medical History: No Pertinent Family History - Tobacco Use Tobacco Use Status *Q: Former Tobacco User Used Tobacco, but Quit: Yes Month/Year Tobacco Last Used: 1989 - Caffeine Use Caffeine Use: Reports: Coffee Other Caffeine Use: 2 coffee - Alcohol Use Days Per Week of Alcohol Use: 5 Number of Drinks Per Day: 1 Total Drinks Per Week: 5 - Recreational Drug Use Recreational Drug Use: No ED ROS GENERAL - Review of Systems Review Of Systems: See Below Constitutional: Reports: No Symptoms HEENT: Reports: No Symptoms Respiratory: Reports: No Symptoms Cardiovascular: Reports: No Symptoms Endocrine: Reports: No Symptoms GI/Abdominal: Reports: No Symptoms : Reports: No Symptoms Musculoskeletal: Reports: No Symptoms Skin: Reports: Wound Neurological: Reports: No Symptoms Psychiatric: Reports: No Symptoms ED EXAM, HEAD INJURY - Physical Exam Exam: See Below Exam Limited By: No Limitations General Appearance: Alert, No Apparent Distress Eyes: Bilateral Eye: PERRL Ears: Normal External Exam, Normal Canal Nose: Normal Inspection, Normal Mucousa, No Blood Throat/Mouth: Normal Inspection, Normal Lips, Normal Teeth, Normal Gums, Normal Oropharynx, Normal Voice Neck: Non-Tender, Full Range of Motion, Normal Alignment Respiratory: No Respiratory Distress, Lungs Clear, Normal Breath Sounds, No Accessory Muscle Use, Chest Non-Tender Cardiovascular: Normal Peripheral Pulses, Regular Rate, Rhythm, No Edema, No Gallop, No JVD, No Murmur GI/Abdominal Exam: Normal Bowel Sounds, Soft, Non-Tender, No Organomegaly Back Exam: Normal Inspection, Full Range of Motion Extremities: Normal Inspection, Normal Range of Motion, Non-Tender Neurologic: infusion nurse II-XII nml As Tested, No Motor/Sensory Deficits, Alert ED LACERATION/WOUND & CHRISTIANE PROC - Laceration/Wound Repair Left Head Lac/wound length in cm: 3 Appearance: Subcutaneous Anesthetic Type: Local Local Anesthesia - Lidocaine (Xylocaine): 1% Plain Local Anesthetic Volume: 1cc Skin Prep: Chlorhexidine (Hibiciens) Exploration/Debridement/Repair: Wound Explored Closed with: Sutures Suture Size: 3-0 # of Sutures: 3 Suture Type: Silk Course - Vital Signs Text/Narrative:: Lab result was reviewed anddiscussed with patient and his NS 1 L bolus UTD with immunization Last Recorded V/S: Last Vital Signs Temp Pulse 64 07/01/21 09:20 Resp 16 07/01/21 09:20 BP 232/99 H 07/01/21 09:25 Pulse Ox 97 07/01/21 09:20 - Orders/Labs/Meds Orders: Active Orders 24 hr Category Date Time Status Sodium Chloride 0.9% [Normal Saline] 1,000 ml Med 07/01/21 10:15 Ordered IV ASDIRECTED Sodium Chloride 0.9% [Saline Flush] Med 07/01/21 10:15 Ordered 10 ml FLUSH ASDIRECTED PRN Saline Lock Insert [OM.PC] Routine Oth 07/01/21 10:15 Ordered Medication Orders Sodium Chloride (Normal Saline) 1,000 mls @ 999 mls/hr IV ASDIRECTED [facility] Last Admin: 07/01/21 10:35 Dose: 999 mls/hr Documented by: Sodium Chloride (Sodium Chloride 0.9% 10 Ml Syringe) 10 ml FLUSH ASDIRECTED PRN PRN Reason: Keep Vein Open Last Admin: 07/01/21 10:30 Dose: 10 ml Documented by: Labs: Laboratory Tests 07/01/21 07/01/21 Range/Units 10:20 10:20 WBC 6.6 (3.2-10.1) x10-3/uL RBC 4.55 (3.90-5.90) x10(6)uL Hgb 14.7 (12.9-17.7) g/dL Hct 43.2 (38.3-50.1) % MCV 95.1 (80.8-98.7) fL MCH 32.3 (27.0-33.3) pg MCHC 34.0 (28.7-35.3) g/dL RDW 13.1 (12.4-15.0) % Plt Count 168 (117-477) x10(3)uL MPV 7.0 (6.7-11.0) fL Neut % (Auto) 60.8 (40.3-71.8) % Lymph % (Auto) 28.1 (15.8-45.3) % [place] % (Auto) 6.9 (5.5-15.2) % Eos % (Auto) 3.6 (0.1-6.8) % Baso % (Auto) 0.6 (0.3-3.8) % Neut # (Auto) 4.0 (1.7-6.9) x10-3/uL Lymph # (Auto) 1.9 (0.5-4.5) x10-3/uL [place] # (Auto) 0.5 (0.0-1.2) x10-3/uL Eos # (Auto) 0.2 (0.0-0.6) x10-3/uL Baso # (Auto) 0.0 (0.0-0.3) x10-3/uL Sodium 134 L (135-145) mmol/L Potassium 4.6 (3.5-5.3) mmol/L Chloride 99 L (100-110) mmol/L Carbon Dioxide 31 (21-32) mmol/L BUN 16 (7-18) mg/dL Creatinine 1.2 (0.70-1.30) mg/dL Est Cr Clr Drug Dosing 50.55 mL/min Estimated GFR (MDRD) 58 L (>60) BUN/Creatinine Ratio 13.3 (9-20) Glucose 97 (80-116) mg/dL Calcium 8.9 (8.6-10.2) mg/dL Total Bilirubin 0.6 (0.1-1.3) mg/dL AST 19 (5-25) IU/L ALT 30 (12-36) U/L Alkaline Phosphatase 45 L (56-112) IU/L Total Protein 7.2 (6.0-8.0) g/dL Albumin 3.7 (3.2-4.6) g/dL Globulin 3.5 g/dL Albumin/Globulin Ratio 1.1 Meds: Medications Generic Name Dose Route Start Last Admin Trade Name Freq PRN Reason Stop Dose Admin Sodium Chloride 1,000 mls @ 999 mls/hr 07/01/21 10:15 07/01/21 10:35 Normal Saline IV 999 mls/hr ASDIRECTED [facility] Administration Sodium Chloride 10 ml 07/01/21 10:15 07/01/21 10:30 Sodium Chloride 0.9% 10 Ml Syringe FLUSH 10 ml ASDIRECTED PRN Administration Keep Vein Open Departure - Departure Time of Disposition: 11:30 Disposition: Home, Self-Care 01 Condition: Good Clinical Impression: Head injury, Laceration of head, Dehydration - Discharge Information Instructions: Head Injury, Adult, [id number], Laceration Care, Adult, [id number], Dehydration, Elderly, [id number] Referrals: Nathan Lopez MD [Primary Care Provider] - Forms: ED Department Discharge Additional Instructions: Please read discharge instructions on laceration, head injury, dehydration Do not cover your wound when you are inside the house Take tylenol 1000 mg every 8 hours as needed for pain No need to apply an antibiotic ointment Drink at least 2 liters of water daily to prevent dehydration Removal of suture in 10 days Sepsis Event Note (ED) - Focused Exam Vital Signs: Vital Signs Pulse Resp BP BP Pulse Ox 07/01/21 09:25 142/90 H 232/99 H 07/01/21 09:20 64 16 240/113 H 97 - My Orders Last 24 Hours: My Active Orders 07/01/21 10:15 Sodium Chloride 0.9% [Normal Saline] 1,000 ml IV ASDIRECTED Sodium Chloride 0.9% [Saline Flush] 10 ml FLUSH ASDIRECTED PRN Saline Lock Insert [OM.PC] Routine - Assessment/Plan Last 24 Hours: My Active Orders 07/01/21 10:15 Sodium Chloride 0.9% [Normal Saline] 1,000 ml IV ASDIRECTED Sodium Chloride 0.9% [Saline Flush] 10 ml FLUSH ASDIRECTED PRN Saline Lock Insert [OM.PC] Routine
--- NOTE | 2021-07-01 11:24 | CT ---
CT HEAD WITHOUT CONTRAST INDICATION: Fall, head injury - hit head of left eye. Spiral 3.75 mm axial sections were obtained through the brain without contrast 07/01/21 - no comparisons. Axial, sagittal and coronal reconstructions were obtained. Total exam DLP was 1399.62 mGy/cm. There is almost complete opacification of the right maxillary antrum, which may be on the basis of a very large retention cyst. Probable postsurgical window is noted at the left maxillary antrum medial wall. Areas of partial opacification of ethmoid air cells is noted, mostly on the left. Thickening of the linings of the frontal air cells is also noted. Soft tissue swelling is noted at the right orbit and to a greater extent left orbital area and supraorbital area - frontal bone on the left with a moderate- sized scalp hematoma. There is minimal air in the apparent laceration area - injury area on the left in the frontal region. However, no definite orbital or cranial fracture site was noted. The mastoid air cells appear well aerated. Degenerative changes of moderate to moderately severe degree are noted at the odontoatlantian joint. Calcifications are noted in the vertebral arteries and minimally in the internal carotid arteries. No shift of midline structures or significant ventricular abnormality was identified with mild asymmetry of the lateral ventricles - right larger than left, possibly a variant or on the basis of tissue loss relatively on the right where cortical sulci are relatively prominent suggesting cortical atrophy mainly in the parietal lobe area. The berumen/white matter interface appears to be fairly well visualized. No bleeding site or hematoma was suggested. No other acute or chronic intracranial abnormality was identified. IMPRESSION: 1. No definite acute intracranial abnormality. 2. Asymmetry of apparent cortical atrophy with the right parietal sulci fairly prominent compared with the left as well as the right lateral ventricle. This may be on the basis of atrophy on the right rather than anomaly or any acute abnormality. There are arterial calcifications noted. 3. Soft tissue swelling and scalp hematoma left frontal area without underlying fracture. 4. Findings in the paranasal sinuses likely on the basis of chronic sinusitis. Report was called to Dr. Bowling at 1032 hours 07/01/21. [facility]
== END 2021-07-01 12:10 | disposition home or self-care (01) ==
LOC: FB.ED 09:19
DX: S01.81XA Laceration without foreign body of other part of head, initial encounter (principal); Z87.891 Personal history of nicotine dependence; W01.0XXA Fall on same level from slipping, tripping and stumbling without subsequent striking against object, initial encounter
CPT/HCPCS: 12013; 36415; 70450; 80053; 85025; 99284; J7030

== ENCOUNTER 2024-06-29 07:40 | Inpatient (IN) | payer MEDICARE, OTHER ==
[2024-06-29 08:35] LABS: BASOPHILS PERCENT AUTO 0.4 % (0.3-3.8); EOSINOPHILS ABSOLUTE AUTO 0.2 x10-3/uL (0.0-0.6); EOSINOPHILS PERCENT AUTO 3.1 % (0.1-6.8); HEMATOCRIT 39.7 % (38.3-50.1); HEMOGLOBIN 13.5 g/dL (12.9-17.7); LYMPHOCYTES PERCENT AUTO 28.3 % (15.8-45.3); MEAN CORPUSCULAR VOLUME 94.4 fL (80.8-98.7); MEAN PLATELET VOLUME 7.2 fL (6.7-11.0); MONOCYTES ABSOLUTE AUTO 0.5 x10-3/uL (0.0-1.2); MONOCYTES PERCENT AUTO 7.2 % (5.5-15.2); NEUTROPHILS ABSOLUTE AUTO 4.2 x10-3/uL (1.7-6.9); PLATELET COUNT,PLT 197 x10(3)uL (117-477); RED BLOOD CELL COUNT 4.21 x10(6)uL (3.90-5.90); RED CELL DISTRIBUTION WIDTH 13.7 % (12.4-15.0)
[2024-06-29 08:37] LABS: BLOOD UREA NITROGEN,BUN 17 mg/dL (7-18); BUN/CREATININE RATIO 15.5 (9-20); CALCIUM 8.8 mg/dL (8.6-10.2); CARBON DIOXIDE,CO2 28 mmol/L (21-32); CHLORIDE,CL 100 mmol/L (100-110); CREATININE 1.1 mg/dL (0.70-1.30); EST CRCL DRUG DOSING (CG) 53.89 mL/min; ESTIMATED GFR 66 mL/min (>60); GLUCOSE RANDOM 96 mg/dL (80-116); POTASSIUM,K 4.3 mmol/L (3.5-5.3); SODIUM,NA 135 mmol/L (135-145)
[2024-06-29 08:38] LABS: BASE EXCESS VENOUS,POC 2 mmol/L (-2 - 3+); PCO2 VENOUS,POC 45 mmHg (41-51); PH VENOUS,POC 7.39 pH Units (7.32-7.43)
[2024-06-29 08:43] LABS: A/G RATIO 0.9; ALANINE AMINOTRANSFERASE,ALT 22 U/L (12-36); ALBUMIN 3.4 g/dL (3.2-4.6); ALKALINE PHOSPHATASE 50 IU/L (56-112); ASPARTATE AMNIOTRANSFERASE,AST 20 IU/L (5-25); BILIRUBIN TOTAL 0.8 mg/dL (0.1-1.3)
[2024-06-29 08:52] LABS: PRO B-TYPE NATRIUR PEPT,BNPPRO 849 pg/mL (<=450); TROPONIN I 15.8 pg/mL (4.0-60.3)
[2024-06-29 08:56] LABS: C-REACTIVE PROTEIN < 0.50 mg/dL (<0.50)
[2024-06-29] MEDS: Furosemide 20 MG Tab PO ONE (09:43)
[2024-06-29] MEDS: Azithromycin 500 MG Tab PO ONE (09:43)
[2024-06-29] MEDS: Albuterol/Ipratropium 3.0-0.5 MG/3 ML Neb Soln NEB ONE (09:44)
[2024-06-29] MEDS: methylPREDNISolone Sodium Succinate 125 MG/2 ML SDV IVPUSH SCH (09:44)
[2024-06-29 11:25] LABS: BILIRUBIN,URINE NEGATIVE (NEGATIVE); GLUCOSE,URINE NORMAL (NORMAL); KETONES,URINE NEGATIVE (NEGATIVE); LEUKOCYTE ESTERASE,URINE NEGATIVE (NEGATIVE); NITRITE,URINE NEGATIVE (NEGATIVE); OCCULT BLOOD,URINE TRACE (NEGATIVE); PROTEIN,URINE 100 mg/dL (NEGATIVE); UROBILINOGEN,URINE NORMAL (NEGATIVE)
[2024-06-29 11:27] LABS: APPEARANCE,URINE CLEAR (CLEAR); BACTERIA,URINE MODERATE (NS); COLOR,URINE YELLOW (YELLOW); RBC,URINE 0-5 (0-5); SQUAMOUS EPITHELIAL CELLS,UR FEW (NS,R,O)
[2024-06-29] MEDS ORDERED: Loratadine 10 MG Tab PO PRN (11:43)
[2024-06-29] MEDS ORDERED: Non-Formulary Medication 1 Each (Albuterol Sulfate [Proair Digihaler] 90 MCG Aer.Pw.Bas) IH PRN (11:43)
[2024-06-29] MEDS: amLODIPine 2.5 MG Tab PO ONE (22:40)
[2024-06-29] MEDS: Albuterol 0.083% 2.5 MG/3 ML Neb Soln NEB PRN (22:46)
[2024-06-29] MEDS: amLODIPine 2.5 MG Tab PO SCH (22:48)
[2024-06-29] MEDS: Formoterol/Mometasone 200-5 MCG 8.8 GM Inhaler IH SCH (22:48)
[2024-06-29] MEDS: Formoterol/Mometasone 200-5 MCG 8.8 GM Inhaler IH ONE (22:48)
[2024-06-29] MEDS: amLODIPine 5 MG Tab ONE (22:49)
[2024-06-30] MEDS: Diclofenac Sodium 1% Gel 100 GM Tube TOP PRN (05:04)
[2024-06-30] MEDS: Sulfamethoxazole/Trimethoprim 400-80 MG Tab PO SCH (08:55)
[2024-06-30] MEDS: Azithromycin 250 MG Tab PO SCH (08:55)
[2024-06-30] MEDS: predniSONE 20 MG Tab PO SCH (08:55)
[2024-06-30] MEDS: Formoterol/Mometasone 200-5 MCG 8.8 GM Inhaler IH SCH (09:04)
[2024-06-30] MEDS: Furosemide 20 MG/2 ML VIAL IVPUSH SCH (10:06)
[2024-06-30] MEDS ORDERED: cefTRIAXone 1 GM in Sodium Chloride 0.9% 50 ML IV SCH (10:15)
[2024-06-30] MEDS ORDERED: Albuterol/Ipratropium 3.0-0.5 MG/3 ML Neb Soln NEB PRN (10:54)
[2024-06-30] MEDS: methylPREDNISolone Sodium Succinate 40 MG/1 ML SDV IVPUSH SCH (11:42)
[2024-06-30] MEDS: Sodium Chloride 0.9% 10 ML Syringe FLUSH PRN (11:43)
[2024-06-30] MEDS: Heparin Sodium 5,000 Units/ML Vial SUBCUT SCH (11:48)
[2024-06-30] MEDS: Albuterol/Ipratropium 3.0-0.5 MG/3 ML Neb Soln NEB SCH (11:49)
[2024-06-30] MEDS: cefTRIAXone 1 GM Vial IVPUSH SCH (12:00)
[2024-07-01 06:54] LABS: HEMATOCRIT 38.3 % (38.3-50.1); HEMOGLOBIN 13.1 g/dL (12.9-17.7); MEAN CORPUSCULAR HEMOGLOBIN 32.1 pg (27.0-33.3); MEAN CORPUSCULAR HGB CONC 34.1 g/dL (28.7-35.3); MEAN CORPUSCULAR VOLUME 94.3 fL (80.8-98.7); MEAN PLATELET VOLUME 7.2 fL (6.7-11.0); PLATELET COUNT,PLT 199 x10(3)uL (117-477); RED BLOOD CELL COUNT 4.07 x10(6)uL (3.90-5.90); RED CELL DISTRIBUTION WIDTH 13.7 % (12.4-15.0); WHITE BLOOD CELL COUNT,WBC 8.2 x10-3/uL (3.2-10.1)
[2024-07-01 07:00] LABS: BLOOD UREA NITROGEN,BUN 31 mg/dL (7-18); BUN/CREATININE RATIO 25.8 (9-20); CALCIUM 8.8 mg/dL (8.6-10.2); CARBON DIOXIDE,CO2 29 mmol/L (21-32); CHLORIDE,CL 99 mmol/L (100-110); CREATININE 1.2 mg/dL (0.70-1.30); EST CRCL DRUG DOSING (CG) 47.93 mL/min; ESTIMATED GFR 59 mL/min (>60); GLUCOSE RANDOM 132 mg/dL (80-116); MAGNESIUM 1.8 mg/dL (1.8-2.5); POTASSIUM,K 4.2 mmol/L (3.5-5.3); SODIUM,NA 135 mmol/L (135-145)
[2024-07-01 07:18] LABS: LYMPHOCYTES PERCENT MAN 11 % (13-37); MONOCYTES PERCENT MAN 4 % (4-12); SEG NEUTROPHILS PERCENT MAN 85 % (46-82)
== END 2024-07-01 14:50 | disposition home or self-care (01) | DRG 191 ==
LOC: FB.ED 07:40 → FB.MS 09:29 → OBSVTOIN 06-30 10:09
PROVIDERS: ADMIT Emergency Medicine; ATTEND Internal Medicine
DX: J44.1 Chronic obstructive pulmonary disease with (acute) exacerbation (principal); N30.01 Acute cystitis with hematuria; D64.9 Anemia, unspecified; J44.0 Chronic obstructive pulmonary disease with (acute) lower respiratory infection; R94.5 Abnormal results of liver function studies; R91.8 Other nonspecific abnormal finding of lung field; E78.00 Pure hypercholesterolemia, unspecified; J45.909 Unspecified asthma, uncomplicated; I50.9 Heart failure, unspecified; I11.0 Hypertensive heart disease with heart failure; N31.9 Neuromuscular dysfunction of bladder, unspecified; I27.20 Pulmonary hypertension, unspecified; I34.0 Nonrheumatic mitral (valve) insufficiency; M19.90 Unspecified osteoarthritis, unspecified site; R82.81 Pyuria; Z79.52 Long term (current) use of systemic steroids; Z79.899 Other long term (current) drug therapy; Z87.440 Personal history of urinary (tract) infections; Z98.890 Other specified postprocedural states
CPT/HCPCS: 36415; 51701; 71046; 80048; 80053; 81001; 83605; 83735; 83880; 84484; 85025; 86140; 87040; 87086; 87486; 87581; 87633; 87798; 93005; 93010; 93306; 94640; 96374; 96375; 99222; 99232; 99238; 99285; 99285-25; A9270-GY; C1758; G0378; J0696; J1644; J1940; J2919; J3490; J7512; J7620; U0002